=== PATIENT | male | born 1955 | race Native Hawaiian/Other Pacific Islander ===

== ENCOUNTER 2017-09-17 13:28 | Emergency (ER) | payer OTHER ==
[~2017-09-17] VITALS: Ht 175.3 cm; Wt 88.5 kg
== END 2017-09-17 17:06 | disposition home or self-care (01) ==
LOC: ED 13:28
PROC: 3E1CX8Z Irrigation of Eye using Irrigating Substance (ICD-10-PCS; principal; 2017-09-17)
DX: H53.2 Diplopia (principal); R09.81 Nasal congestion
CPT/HCPCS: 99283